=== PATIENT | male | born 1975 ===

== ENCOUNTER 2017-05-02 12:59 | Emergency (ER) | payer MEDICAID ==
[2017-05-02 12:59] VITALS: BMI 31.4
[2017-05-02] MEDS ORDERED: Sodium Chloride 0.9% 1,000 ML IV STA (13:25)
[2017-05-02 14:03] LABS: BASO % 0.4 % (0.0-2.0); EOS # 0.1 K/uL (0.0-0.7); EOS % 1.5 % (0.0-4.0); HEMOGLOBIN 15.8 g/dL (12.0-18.0); LYMPH # 3.1 K/uL (1.0-4.3); LYMPH % 32.9 % (20.0-40.0); MEAN CORPUSCULAR HEMOGLOBIN 31.8 pg (27.0-31.0); MEAN CORPUSCULAR HGB CONC 33.8 g/dL (33.0-37.0); MEAN PLATELET VOLUME 8.6 fl (7.2-11.7); MONO # 0.6 K/uL (0.0-0.8); MONO % 6.5 % (0.0-10.0); NEUT # 5.6 K/uL (1.8-7.0); NEUT % 58.7 % (50.0-75.0); NRBC % 0.1 % (0.0-0.0); RBC 4.96 Mil/uL (4.40-5.90); RED CELL DISTRIBUTION WIDTH 14.2 % (11.5-14.5); WHITE BLOOD COUNT 9.5 K/uL (4.8-10.8)
[2017-05-02 14:09] LABS: ALB/GLOB RATIO 1.3 (1.0-2.1); ALBUMIN 4.4 g/dL (3.5-5.0); ALT/SGPT 46 U/L (21-72); AST/SGOT 30 U/L (17-59); BLOOD UREA NITROGEN 17 mg/dl (9-20); CALCIUM 9.1 mg/dL (8.4-10.2); GFR AFRICAN-AMERICAN > 60; GFR NON-AFRICAN AMERICAN > 60
--- NOTE | 2017-05-02 14:24 | ED PDOC ---
HPI: General Adult Time Seen by Provider: 05/02/17 13:13 Chief Complaint (Nursing): Back Pain History Per: Patient Additional Complaint(s): Pt. states 1 hr [employer] he had an abrupt onset of L sided flank pain radiating to the L groin. Reports a similar hx 1-2 years ago and was dx as having a kidney stone but did not require surgery. Also reports feeling nauseous and has had multiple episodes of non-bloody vomiting. Denies fever, hematuria, dysuria, diarrhea, hematemesis. Past Medical History Reviewed: Historical Data, Nursing Documentation, Vital Signs Vital Signs: Last Vital Signs Temp 98.6 F 05/02/17 17:52 Pulse 86 05/02/17 17:52 Resp 16 05/02/17 17:31 BP 141/82 05/02/17 17:52 Pulse Ox 99 05/02/17 17:31 - Medical History PMH: Kidney Stones - Surgical History Surgical History: Appendectomy - Family History Family History: States: No Known Family Hx - Home Medications Home Medications: Ambulatory Orders Medication Instructions Recorded Ondansetron [Zofran] 4 mg PO Q8H #12 tab 03/12/15 Ibuprofen [Motrin] 600 mg PO Q6H PRN #20 tab 06/17/15 ALPRAZolam [Xanax] 0.25 mg PO Q8 #12 tab 10/14/15 Ciprofloxacin [Cipro] 500 mg PO BID #14 tab 05/02/17 Ibuprofen [Motrin Tab] 800 mg PO Q6 PRN #30 tab 05/02/17 Tamsulosin [Flomax] 0.4 mg PO DAILY #14 cap 05/02/17 - Allergies Allergies/Adverse Reactions: Allergies Allergy/AdvReac Type Severity Reaction Status Date / Time No Known Allergies Allergy Verified 05/02/17 13:04 Review of Systems ROS Statement: Except As Marked, All Systems Reviewed And Found Negative Gastrointestinal: Positive for: Nausea, Vomiting Musculoskeletal: Positive for: Back Pain Physical Exam - Physical Exam Appears: Positive for: Non-toxic, Uncomfortable Head Exam: Positive for: ATRAUMATIC, NORMAL INSPECTION, NORMOCEPHALIC Skin: Positive for: Normal Color, Warm. Negative for: Rash Eye Exam: Positive for: Normal appearance Neck: Positive for: Normal, Painless ROM Cardiovascular/Chest: Positive for: Regular Rate, Rhythm Respiratory: Positive for: Normal Breath Sounds. Negative for: Respiratory Distress Gastrointestinal/Abdominal: Positive for: Normal Exam, Bowel Sounds, Soft. Negative for: Tenderness Back: Positive for: Normal Inspection. Negative for: L CVA Tenderness, R CVA Tenderness Extremity: Positive for: Normal ROM Neurologic/Psych: Positive for: Alert, Oriented - Laboratory Results Result Diagrams: 05/02/17 13:45 05/02/17 13:45 - ECG O2 Sat by Pulse Oximetry: 98 - Progress ED Course And Treament: Labs ordered. Toradol 30mg IV, zofran 4mg IV, IV NS bolus x 1, CT abd/pelvis w/ o contrast ordered. Pt. informed of results and instructed to f/u with Dr. Warner for further evaluation. Condition: Re-examined, Improved Disposition - Clinical Impression Clinical Impression: Renal colic, Nephrolithiasis - Patient ED Disposition Is Patient to be Admitted: No - Disposition Referrals: Frederick Warner Jr., MD [Staff Provider] - [facility] [place] [Outside] Disposition: Routine/Home Disposition Time: 16:59 Condition: GOOD Additional Instructions: Follow up with urologist for further evaluation. Prescriptions: Ciprofloxacin [Cipro] 500 mg PO BID #14 tab Ibuprofen [Motrin Tab] 800 mg PO Q6 PRN #30 tab PRN Reason: pain Tamsulosin [Flomax] 0.4 mg PO DAILY #14 cap Instructions: Kidney Stones (ED), Renal Colic (ED), How to Strain Your Urine ( ED) Forms: [facility] (Korean) Print Language: MICRONESIAN
[2017-05-02 15:16] LABS: SQUAMOUS EPITHIAL < 1 /hpf (0-5); URINE BACTERIA RARE (<OCC); URINE BILIRUBIN NEGATIVE (NEGATIVE); URINE BLOOD NEGATIVE (NEGATIVE); URINE CLARITY SLIGHTY-CLOUDY (Clear); URINE COLOR YELLOW (YELLOW); URINE GLUCOSE (UA) NEG (Normal); URINE LEUKOCYTE ESTERASE NEG Leu/uL (Negative); URINE NITRATE NEGATIVE (NEGATIVE); URINE PROTEIN NEGATIVE (NEGATIVE); URINE UROBILINOGEN 0.2-1.0 mg/dL (0.2-1.0)
--- NOTE | 2017-05-02 16:26 | CT ---
PROCEDURE: CT Abdomen and Pelvis without intravenous contrast HISTORY: L flank pain COMPARISON: None. TECHNIQUE: CT scan of the abdomen and pelvis was performed without administration of intravenous contrast. Oral contrast was not administered. Coronal and sagittal reformatted images were obtained. Radiation dose: Total exam DLP = 1106.49 MGy-cm. This CT exam was performed using one or more of the following dose reduction techniques: Automated exposure control, adjustment of the mA and/or kV according to patient size, and/or use of iterative reconstruction technique. FINDINGS: LOWER THORAX: There is dependent atelectasis in the lung bases. LIVER: Normal in size. No gross lesion or ductal dilatation. GALLBLADDER AND BILE DUCTS: No calcified gallstones. PANCREAS: Normal in size. No gross lesion or ductal dilatation. SPLEEN: Normal in size. ADRENALS: No discrete nodule. KIDNEYS AND URETERS: Both kidneys are normal in size. There is a 3 mm nonobstructing stone in the right interpolar region. There are punctate nonobstructing stones in the left kidney. There is a 3 mm stone at the left UV junction, mild diffuse dilatation of the left ureteral, mild left hydronephrosis, edema and enlargement of the left kidney and perinephric fat stranding. VASCULATURE: No aortic aneurysm. BOWEL: The small bowel loops are normal in caliber. The colon is unremarkable. There is no bowel dilatation or obstruction. APPENDIX: Normal appendix. PERITONEUM: No free fluid. No free air. LYMPH NODES: No enlarged lymph nodes. BLADDER: The urinary bladder is partially decompressed and there is apparent mild circumferential mural thickening. REPRODUCTIVE: Unremarkable. BONES: No acute fracture. Within normal limits for the patient's age. OTHER FINDINGS: None. IMPRESSION: 1. Findings are consistent with recent passage of left ureteral stone with a 3 mm stone now identified at the left UV junction. 2. Punctate nonobstructing stones in both kidneys, the largest in the right interpolar region measures 3 mm.
[2017-05-02] MEDS ORDERED: Oxycodone/Acetaminophen 5/325 mg Tab PO STA (16:57)
[2017-05-02] MEDS ORDERED: Oxycodone/Acetaminophen 5/325 mg Tab ONE ×2 (17:11→17:17)
[2017-05-02 17:32] VITALS: BP 141/82; PULSE 86; RESP 16
[2017-05-02 17:55] VITALS: TEMP 98.6
[2017-05-02 18:31] VITALS: O2SAT 98
== END 2017-05-02 17:40 | disposition home or self-care (01) ==
LOC: H.ER 12:59
DX: N20.0 Calculus of kidney (principal)
CPT/HCPCS: 74176; 80053; 81003; 85025; 87086; 96361; 96374; 96375; 99285; J1885; J2405; J7040